=== PATIENT | male | born 1965 ===

== ENCOUNTER 2025-03-29 06:45 | Day surgery (SDC) | payer OTHER ==
[2025-03-29] MEDS ORDERED: NALOXONE HCL 0.4 MG/ML AMPUL IV STA (08:10)
[2025-03-29] MEDS ORDERED: FLUMAZENIL 0.5 MG/5 ML ML IV STA (08:10)
[2025-03-29] MEDS ORDERED: DIPHENHYDRAMINE HCL 50 MG/ML VIAL 1ML IV ONE (08:15)
[2025-03-29] MEDS ORDERED: ENALAPRILAT DIHYDRATE 1.25 MG/ML VIAL IV ONE (08:15)
[2025-03-29] MEDS ORDERED: fentaNYL CITRATE 50 MCG/ML AMPUL IV PUSH ONE (08:15)
[2025-03-29] MEDS ORDERED: MIDAZOLAM HCL 2 MG/2 ML VIAL IV ONE (08:15)
[2025-03-29] MEDS ORDERED: ONDANSETRON HCL 2 MG/ML VIAL IV ONE (08:15)
== END 2025-03-29 09:30 | disposition home or self-care (01) ==
LOC: AMB-ENDOS 06:45
PROVIDERS: ATTEND Colon & Rectal Surgery
DX: K63.5 Polyp of colon (principal); Z12.11 Encounter for screening for malignant neoplasm of colon; K62.1 Rectal polyp; K57.30 Diverticulosis of large intestine without perforation or abscess without bleeding